=== PATIENT | female | born 1985 | race Caucasian/White ===

== ENCOUNTER 2021-09-13 11:35 | Emergency (ER) | payer OTHER ==
[2021-09-13] MEDS ORDERED: Sodium Chloride 0.9% 1000 ML 1,000 ML IV STA (11:56)
[2021-09-13] MEDS ORDERED: MORPHINE SULFATE 4 MG INJ IV ONE (11:59)
[2021-09-13 12:13] LABS: Bacteria Few; Clue Cells None Seen; Red Blood Cells Rare; Trichomonas None Seen; White Blood Cells Few; Yeast None Seen
--- NOTE | 2021-09-13 12:48 | ERPHSYRPT ---
- History of Present Illness Time Seen by Provider: 09/13/21 11:50 Historian: patient Patient Subjective Stated Complaint: abd pain onset Monday, decreased appitite Triage Nursing Assessment: pt to ED c/o abd pain x 2 days and emesis onset . reports hx acute pancreatitis that she believes was brought on by alcohol consumption. last drink was in December. rates 6/10 pain currently. denies urinary or bowel issues currently. abd non tender to palp. reports some pain radiating around to L flank. Physician History: Patient is a 36-year-old female presents to our ED for evaluation of lower abdominal pain. Patient states she has been vomiting for 4 days. Her abdominal pain started 2 days ago. Pain is constant. Pain is moderate in intensity. No specific worsening or improving factors. Patient states she has a history of acute pancreatitis which she believes was alcohol induced. Patient has not been drinking as she is currently a assisted inmate. No trauma. No fever. No diarrhea. No rash. No chest pain or shortness of breath. Symptoms are mild to moderate in intensity. No specific worsening or improving factors. Patient voices no other complaints or concerns at this time. Timing/Duration: day(s) (2 days) Activities at Onset: none Quality: aching Abdominal Pain Onset Location: other (Lower abdominal pain bilaterally.) Pain Radiation: no radiation Severity of Pain-Max: moderate Severity of Pain-Current: mild Modifying Factors: Improves With: nothing Associated Symptoms: nausea, vomiting Previous symptoms: no prior history Allergies/Adverse Reactions: No Known Drug Allergies Allergy (Unverified 09/13/21 11:54) Home Medications: Acetaminophen 500 mg [Tylenol Extra Strength 500 mg] 500 mg PO BID [History] Ondansetron [Ondansetron Odt] 4 mg PO BID 09/13/21 [History] Paroxetine HCl 20 mg [Paxil 20 MG] 20 mg PO DAILY 09/13/21 [History] Hx Tetanus, Diphtheria Vaccination/Date Given: Yes Hx Influenza Vaccination/Date Given: Yes Hx Pneumococcal Vaccination/Date Given: No Immunizations Up to Date: Yes Travel Risk - International Travel Have you traveled outside of the country in past 3 weeks: No - Coronavirus Screening Are you exhibiting any of the following symptoms?: Yes Symptoms: Vomiting/Diarrhea Close contact with a COVID-19 positive Pt in past 14-21 Days: No - Vaccine Status Have you recieved a Covid-19 vaccination: No - Review of Systems Constitutional: No Symptoms, No Fever, No Chills Eyes: No Symptoms Ears, Nose, & Throat: No Symptoms Respiratory: No Symptoms, No Cough, No Dyspnea Cardiac: No Symptoms, No Chest Pain, No Edema, No Syncope Abdominal/Gastrointestinal: No Symptoms, No Abdominal Pain, No Nausea, No Vomiting, No Diarrhea Genitourinary Symptoms: No Symptoms, No Dysuria Musculoskeletal: No Symptoms, No Back Pain, No Neck Pain Skin: No Symptoms, No Rash Neurological: No Symptoms, No Dizziness, No Focal Weakness, No Sensory Changes Psychological: No Symptoms Endocrine: No Symptoms Hematologic/Lymphatic: No Symptoms Immunological/Allergic: No Symptoms All Other Systems: Reviewed and Negative - Past Medical History Pertinent Past Medical History: Yes GI Medical History: Pancreatitis Female Reproductive Disorders: Cervical Cancer Other Medical History: cervical ca - 2011 - Past Surgical History Past Surgical History: Yes Gastrointestinal: Cholecystectomy Female Surgical History: Section - Social History Smoking Status: Current every day smoker How long have you smoked: years Exposure to second hand smoke: No Drug Use: other Patient Lives Alone: No - Female History Hx Last Menstrual Period: currently Hx Now: No - Nursing Vital Signs Nursing Vital Signs: Initial Vital Signs Temperature 98.1 F 09/13/21 11:44 Pulse Rate 106 H 09/13/21 11:44 Respiratory Rate 18 09/13/21 11:44 Blood Pressure 144/93 09/13/21 11:44 O2 Sat by Pulse Oximetry 99 09/13/21 11:44 Pain Scale Pain Intensity 6 - Physical Exam General Appearance: no apparent distress, alert Eye Exam: PERRL/EOMI, eyes nml inspection Ears, Nose, Throat Exam: normal ENT inspection, pharynx normal, moist mucous membranes Neck Exam: normal inspection, non-tender, supple, full range of motion Respiratory Exam: normal breath sounds, lungs clear, No respiratory distress Cardiovascular Exam: regular rate/rhythm, normal heart sounds Gastrointestinal/Abdomen Exam: soft, other (Tenderness to palpation lower abdomen and pelvic region. Patient denies vaginal discharge. No foul odors. Patient denies possibility of STI), No tenderness, No mass Back Exam: normal inspection, normal range of motion, No CVA tenderness, No vertebral tenderness Extremity Exam: normal inspection, normal range of motion, pelvis stable Neurologic Exam: alert, oriented x 3, cooperative, normal mood/affect, nml cerebellar function, sensation nml, No motor deficits Skin Exam: normal color, warm, dry SpO2 Interpretation: normal SpO2: 99 O2 Delivery: Room Air - Course Nursing assessment & vital signs reviewed: Yes - CT Exams Abdomen/Pelvis CT Interpretation: Tele-radiologist Report (Noncontrast stomach and bowel loops nonobstructed. Appendix not seen. Previous cholecystectomy. No free fluid or free air. Remaining liver pancreas spleen adrenal glands kidneys ureter bladder uterus and aorta are unremarkable. No pathologic retroperitoneal lymphadenopathy. Negative CT abdomen) - Radiology Ultrasound Exam Pelvis Ultrasound: discussed w/radiologist (Per cytotechnologist/cytology supervisor ultrasound negative for torsion. Ultrasound pelvis essentially nonremarkable for acute pathology) Ordered Tests: Active Orders 24 hr Category Date Time Status IV Insertion STAT Care 09/13/21 11:56 Completed ABDOMEN AND PELVIS W CONTRAST [CT] Stat Exams 09/13/21 11:57 Completed PELVIS TRANS VAGINAL [US] Stat Exams 09/13/21 11:58 Completed CBC W DIFF Stat Lab 09/13/21 12:50 Completed CMP Stat Lab 09/13/21 12:50 Completed HCG,QUALITATIVE URINE Stat Lab 09/13/21 11:59 Completed UA W/RFX UR CULTURE Stat Lab 09/13/21 12:58 Completed Wet Prep Stat Lab 09/13/21 Completed Medication Summary Discontinued Medications Generic Name Dose Route Start Last Admin Trade Name Freq PRN Reason Stop Dose Admin Sodium Chloride 1,000 mls @ 999 mls/hr 09/13/21 11:56 09/13/21 13:24 Sodium Chloride 0.9% 1000 Ml IV 09/13/21 12:56 999 mls/hr .Q1H1M STA Administration Sodium Chloride Confirm 09/13/21 13:22 Sodium Chloride 0.9% 1000 Ml Administered 09/13/21 13:23 Dose 1,000 mls @ ud .ROUTE .STK-MED ONE Morphine Sulfate 4 mg 09/13/21 11:59 09/13/21 13:24 Morphine Sulfate 4 Mg/Ml Injection IV 09/13/21 12:00 4 mg STAT ONE Administration Morphine Sulfate Confirm 09/13/21 13:22 Morphine Sulfate 4 Mg/Ml Injection Administered 09/13/21 13:23 Dose 4 mg .ROUTE .STK-MED ONE Lab/Rad Data: Laboratory Result Diagrams 09/13/21 12:50 09/13/21 12:50 Laboratory Results 09/13/21 09/13/21 09/13/21 Range/Units Unknown Unknown 12:58 WBC (4.0-10.5) K/mm3 RBC (4.1-5.4) M/mm3 Hgb (12.0-16.0) gm/dl Hct (35-47) % MCV (78-100) fl MCH (26-32) pg MCHC (32-36) g/dl RDW (11.5-14.0) % Plt Count (150-450) K/mm3 MPV (7.5-11.0) fl Gran % (36.0-66.0) % Eos # (Auto) (0-0.5) Absolute Lymphs (auto) (1.0-4.6) Absolute Monos (auto) (0.0-1.3) Lymphocytes % (24.0-44.0) % Monocytes % (0.0-12.0) % Eosinophils % (0.00-5.0) % Basophils % (0.0-0.4) % Absolute Granulocytes (1.4-6.9) Basophils # (0-0.4) Sodium (137-145) mmol/L Potassium (3.5-5.1) mmol/L Chloride (98-107) mmol/L Carbon Dioxide (22-30) mmol/L Anion Gap (5-15) MEQ/L BUN (7-17) mg/dL Creatinine (0.52-1.04) mg/dL Estimated GFR ML/MIN Glucose (74-106) mg/dL Calcium (8.4-10.2) mg/dL Total Bilirubin (0.2-1.3) mg/dL AST (14-36) U/L ALT (0-35) U/L Alkaline Phosphatase (38-126) U/L Serum Total Protein (6.3-8.2) g/dL Albumin (3.5-5.0) g/dL Urine Color YELLOW (YELLOW) Urine Appearance CLOUDY (CLEAR) Urine pH 6.0 (5-6) Ur Specific [place] 1.021 (1.005-1.025) Urine Protein 30 (Negative) Urine Ketones NEGATIVE (NEGATIVE) Urine Blood NEGATIVE (0-5) Jaron/ul Urine Nitrite NEGATIVE (NEGATIVE) Urine Bilirubin NEGATIVE (NEGATIVE) Urine Urobilinogen NEGATIVE (0-1) mg/dL Ur Leukocyte Esterase NEGATIVE (NEGATIVE) Urine WBC (Auto) NONE (0-5) /HPF Urine RBC (Auto) 0-2 (0-2) /HPF U Epithel Cells (Auto) NONE (FEW) /HPF Urine Bacteria (Auto) NONE (NEGATIVE) /HPF Urine Mucus (Auto) SLIGHT (NEGATIVE) /HPF Urine Culture Reflexed NO (NO) Urine Glucose NEGATIVE (NEGATIVE) mg/dL Urine HCG, Qual (Negative) WBC (Wet Prep) Few RBC (Wet Prep) Rare Epi Cells (Wet Prep) Few Bacteria (Wet Prep) Few Clue Cells (Wet Prep) None Seen Trichomonas (Wet Prep) None Seen Budding Yeast (Wet Prp) None Seen Chlamydia DNA Probe NOT DETECTED (NEGATIVE) N.gonorrhoeae DNA Probe NOT DETECTED (NEGATIVE) 09/13/21 09/13/21 09/13/21 Range/Units 12:50 12:50 11:59 WBC 8.3 (4.0-10.5) K/mm3 RBC 4.85 (4.1-5.4) M/mm3 Hgb 13.5 (12.0-16.0) gm/dl Hct 41.9 (35-47) % MCV 86.4 (78-100) fl MCH 27.8 (26-32) pg MCHC 32.2 (32-36) g/dl RDW 14.3 H (11.5-14.0) % Plt Count 391 (150-450) K/mm3 MPV 10.0 (7.5-11.0) fl Gran % 67.7 H (36.0-66.0) % Eos # (Auto) 0.08 (0-0.5) Absolute Lymphs (auto) 1.74 (1.0-4.6) Absolute Monos (auto) 0.83 (0.0-1.3) Lymphocytes % 20.9 L (24.0-44.0) % Monocytes % 10.0 (0.0-12.0) % Eosinophils % 1.0 (0.00-5.0) % Basophils % 0.4 (0.0-0.4) % Absolute Granulocytes 5.63 (1.4-6.9) Basophils # 0.03 (0-0.4) Sodium 137 (137-145) mmol/L Potassium 3.5 (3.5-5.1) mmol/L Chloride 101 (98-107) mmol/L Carbon Dioxide 25 (22-30) mmol/L Anion Gap 14.7 (5-15) MEQ/L BUN 10 (7-17) mg/dL Creatinine 0.55 (0.52-1.04) mg/dL Estimated GFR > 60.0 ML/MIN Glucose 110 H (74-106) mg/dL Calcium 9.6 (8.4-10.2) mg/dL Total Bilirubin 1.10 (0.2-1.3) mg/dL AST 57 H (14-36) U/L ALT 41 H (0-35) U/L Alkaline Phosphatase 62 (38-126) U/L Serum Total Protein 8.3 H (6.3-8.2) g/dL Albumin 4.9 (3.5-5.0) g/dL Urine Color (YELLOW) Urine Appearance (CLEAR) Urine pH (5-6) Ur Specific [place] (1.005-1.025) Urine Protein (Negative) Urine Ketones (NEGATIVE) Urine Blood (0-5) Jaron/ul Urine Nitrite (NEGATIVE) Urine Bilirubin (NEGATIVE) Urine Urobilinogen (0-1) mg/dL Ur Leukocyte Esterase (NEGATIVE) Urine WBC (Auto) (0-5) /HPF Urine RBC (Auto) (0-2) /HPF U Epithel Cells (Auto) (FEW) /HPF Urine Bacteria (Auto) (NEGATIVE) /HPF Urine Mucus (Auto) (NEGATIVE) /HPF Urine Culture Reflexed (NO) Urine Glucose (NEGATIVE) mg/dL Urine HCG, Qual NEGATIVE (Negative) WBC (Wet Prep) RBC (Wet Prep) Epi Cells (Wet Prep) Bacteria (Wet Prep) Clue Cells (Wet Prep) Trichomonas (Wet Prep) Budding Yeast (Wet Prp) Chlamydia DNA Probe (NEGATIVE) N.gonorrhoeae DNA Probe (NEGATIVE) - Progress Progress: improved Progress Note: Patient reassessed. She is asymptomatic at this time. Wet prep negative. GC chlamydia negative. Urinalysis negative. CT abdomen pelvis negative. Ultrasound pelvis negative. Labs are essentially nonremarkable. Liver enzymes are marginally elevated. Patient has no right upper quadrant pain. No i ndication for further work-up at this time. Will discharge. The medical facility in the assisted can treat patient is nausea as needed. Patient to follow- up with primary care doctor within 48 hours for reevaluation. 09/13/21 13:53 Counseled pt/family regarding: lab results, diagnosis, need for follow-up, rad results - Departure Departure Disposition: Home Clinical Impression: Nausea & vomiting, Abdominal pain, Transaminitis Condition: Stable Critical Care Time: No Referrals: MICHEAL SAMANO OCC THER [Primary Care Provider] - Follow up/PCP as directed Additional Instructions: Discharge/Care Plan LAURIE WYLIE was seen on 09/13/21 in the Emergency Room. The patient was c ounseled regarding Diagnosis,Lab results, Imaging studies, need for follow up and when to return to the Emergency Room. Prescriptions given: Discharge Note I have spoken with the patient and/or caregivers. I have explained the patient's condition, diagnosis and treatment plan based on the information available to me at this time. I have answered the patient's and/or caregiver's questions and addressed any concerns. The patient and/or caregivers have as good understanding of the patient's diagnosis, condition and treatment plan as can be expected at this point. The vital signs have been stable. The patient's condition is stable and appropriate for discharge from the emergency department. The patient will pursue further outpatient evaluation with the primary care physician or other designated or consulting physician as outlined in the discharge instructions. The patient and/or caregivers are agreeable to this plan of care and follow-up instructions have been explained in detail. The patient and/or caregivers have received these instruction. The patient/and or caregivers are aware that any significant change in condition or worsening of symptoms should prompt an immediate return to this or the closest emergency department or call 911.
--- NOTE | 2021-09-13 13:07 | XRAY ---
Indication: Pelvic pain. Two-dimensional transvaginal pelvic sonogram performed. Comparison: None Uterus anteverted measuring 8.5 x 4.2 x 5.6 cm. No focal solid/cystic uterine mass. Endometrial stripe measures 6.7 mm. No endometrial cavity mass or fluid collection. Right ovary measures 1.9 x 1.3 x 2.8 cm and the left measures 2.5 x 1.5 x 2.0 cm. Normal follicular cysts and perfusion bilaterally. No suspicious adnexal mass or free fluid. Impression: Negative transvaginal pelvic sonogram.
[2021-09-13 13:19] LABS: Absolute Neutrophil Ct (ANC) 5.63 (1.4-6.9); BASOPHIL % 0.4 % (0.0-0.4); Basophil (Absolute #) 0.03 (0-0.4); Eosinophil (Absolute #) 0.08 (0-0.5); Hematocrit 41.9 % (35-47); Hemoglobin 13.5 gm/dl (12.0-16.0); Lymphocyte (Absolute #) 1.74 (1.0-4.6); Lymphocytes % 20.9 % (24.0-44.0); Mean Cell Volume 86.4 fl (78-100); Mean Corpuscular Hemoglobin 27.8 pg (26-32); Mean Corpuscular Hgb Concent. 32.2 g/dl (32-36); Monocyte (Absolute #) 0.83 (0.0-1.3); Neutrophil % 67.7 % (36.0-66.0); Platelet Count 391 K/mm3 (150-450); Red Blood Count 4.85 M/mm3 (4.1-5.4); Red Cell Distribution Width 14.3 % (11.5-14.0); White Blood Count 8.3 K/mm3 (4.0-10.5)
[2021-09-13] MEDS ORDERED: MORPHINE SULFATE 4 MG INJ ONE (13:22)
[2021-09-13] MEDS ORDERED: Sodium Chloride 0.9% 1000 ML 1,000 ML ONE (13:22)
--- NOTE | 2021-09-13 13:33 | XRAY ---
Indication: Vomiting. Recurrent pancreatitis. Multiple contiguous axial images obtained through the abdomen and pelvis using 80 cc Isovue 370 contrast. Comparison: None Lung bases are clear. Noncontrasted stomach and bowel loops nonobstructed. Appendix not seen. Previous cholecystectomy. No free fluid/air. Remaining liver, pancreas, spleen, adrenal glands, kidneys, ureters, bladder, uterus, and aorta are unremarkable. No pathologic retroperitoneal lymphadenopathy. Osseous structures intact. Impression: Negative CT abdomen/pelvis with contrast exam.
[2021-09-13 13:34] LABS: Appearance CLOUDY (CLEAR); Bilirubin NEGATIVE (NEGATIVE); Blood NEGATIVE Ery/ul (0-5); Glucose NEGATIVE (NEGATIVE); Ketones NEGATIVE (NEGATIVE); Leukocyte Esterase NEGATIVE (NEGATIVE); Mucus SLIGHT /HPF (NEGATIVE); Nitrite NEGATIVE (NEGATIVE); Protein,Urine Dip 30 (Negative); RBC 0-2 /HPF (0-2); Specific Gravity 1.021 (1.005-1.025); Urobilinogen NEGATIVE mg/dL (0-1)
[2021-09-13 13:36] LABS: CHLAMYDIA DNA NOT DETECTED (NEGATIVE); GC DNA Probe NOT DETECTED (NEGATIVE)
[2021-09-13 13:37] LABS: ALBUMIN 4.9 g/dL (3.5-5.0); ALKALINE PHOSPHATASE 62 U/L (38-126); ANION GAP 14.7 MEQ/L (5-15); BLOOD UREA NITROGEN 10 mg/dL (7-17); CHLORIDE 101 mmol/L (98-107); Calcium 9.6 mg/dL (8.4-10.2); Carbon Dioxide 25 mmol/L (22-30); Creatinine 1 0.55 mg/dL (0.52-1.04); EST GLOMERULAR FILTRATION RATE > 60.0 ML/MIN; Glucose 110 mg/dL (74-106); Potassium 3.5 mmol/L (3.5-5.1); SGOT/AST 57 U/L (14-36); SGPT/ALT 41 U/L (0-35); SODIUM 137 mmol/L (137-145); Total Protein 8.3 g/dL (6.3-8.2)
[2021-09-13 17:12] VITALS: BP 132/75; PULSE 84
[2021-09-13 18:35] VITALS: O2SAT 99
== END 2021-09-13 14:34 | disposition home or self-care (01) ==
LOC: EEVIPCON 11:35 → ED 11:35
DX: R10.30 Lower abdominal pain, unspecified (principal); R11.2 Nausea with vomiting, unspecified; R74.01 Elevation of levels of liver transaminase levels; Z72.0 Tobacco use
CPT/HCPCS: 36000; 36415; 74177; 76830; 80053; 81001; 84703; 85025; 87210; 87491; 87591; 96374; 99284; J2270